=== PATIENT | female | born 1945 | race Caucasian/White ===

== ENCOUNTER 2017-07-26 23:59 | Observation (INO) | payer BC, OTHER ==
[~2017-07-26] VITALS: Ht 149.9 cm; Wt 92.3 kg
[~2017-07-26 23:59] MED LIST: ACTOS15 MG PO; ASPIR 8181 MG PO; ASPIR-LOW81 MG PO; ASPIRIN81 M1 PO; ATORVASTATIN CA80 MG PO; BAYER CHILDREN'81 MG PO; CALCIUM CARBONATE; CARDIZEM CD,CA180 MG PO; CARTIA XT240 MG PO; CHOLECALCIFEROL; CLOPIDOGREL75 MG PO; DILTZAC ER240 MG PO; FERROUS SULFAT325 MG PO; FOLBIC,FOLTX1 DOSE PO; GLUCOVANCE 21 TABLET PO; GLYBURID-METFO1 EAC2 PO; GLYBURIDE-METF1 EACH PO; HYDROCHLOROTH12.5 M2 PO; HYDROCHLOROTH12.5 M3 PO; HYDROCHLOROTHIA25 MG PO; IRON325 MG PO; K-DUR20 MEQ PO; LANTUS 10100 UNITS/ SC; LISINOPRIL10 MG PO; Levothroid,Synthroid PO; METOPROLOL TART75 MG PO; NIFEDIPINE ER30 M1 PO; NITROSTAT0.4 MG SL; NOVOLOG PE100 UNITS/ SC; OSCAL, OYSTER500 MG PO; PRAVACHOL10 MG PO; PROTONIX PO; PROTONIX40 MG PO; SYNTHROID100 MCG PO; SYNTHROID75 MCG PO; VENTOLIN HFA18 GM IH; VITAMIN B-121000 MCG PO; VITAMIN B12-FO1 EACH PO; VITAMIN C250 MG PO; VITAMIN C500 M1 PO; VITAMIN C500 M5 PO; VITAMIN D50000 UNI1 PO; VITAMIN D50000 UNI2 PO; ZESTRIL,PRINIVI20 MG PO; Zestril,Prinivil PO
[2017-07-27 01:35] LABS: HEMATOCRIT 40.5 % (36.0-46.0); HEMOGLOBIN 13.3 G/DL (11.9-15.5); MCH 26.9 PG (29.0-34.0); MCHC 32.8 G/DL (30.0-36.0); MCV 81.8 FL (83-99); PLATELET COUNT 246 K/uL (156-360); RBC DIS.WIDTH-CV 16.3 % (11.8-14.6); RED BLOOD COUNT 4.95 M/uL (3.80-5.20); WHITE BLOOD COUNT 6.6 K/uL (4.1-10.2)
[2017-07-27 01:46] LABS: CHLORIDE 99 mEq/L (99-109); POTASSIUM 3.7 mEq/L (3.7-5.4); SODIUM 138 mEq/L (136-147)
[2017-07-27 01:48] LABS: GLUCOSE 253 mg/dL (70-99)
[2017-07-27 01:52] LABS: CREATININE 0.9 mg/dL (0.6-1.3); GFR ESTIMATE (CALCULATED) > 59 mL/min/
[2017-07-27 01:53] LABS: UREA NITROGEN (BUN) 18 mg/dL (9-23)
[2017-07-27 01:56] LABS: TROP-I INTERPRETATION NEGATIVE; TROPONIN-I < 0.01 ng/mL (0.0-0.30)
[2017-07-27 02:02] LABS: ALBUMIN 3.9 g/dL (3.2-4.8)
[2017-07-27 02:03] LABS: PTT 31.2 SEC (25-37)
[2017-07-27 02:05] LABS: TOTAL PROTEIN 7.4 g/dL (6.4-8.3)
[2017-07-27 02:07] LABS: TOTAL BILIRUBIN 0.6 mg/dL (0.0-1.0)
[2017-07-27 02:08] LABS: ALKALINE PHOSPHATASE 158 IU/L (3-129)
[2017-07-27 02:10] LABS: AST (GOT) 30 IU/L (2-34); DIRECT BILIRUBIN 0.2 mg/dL (0.0-0.3)
[2017-07-27 02:11] LABS: ALT (GPT) 36 IU/L (3-49); LIPASE 32 U/L (1.0-51.0)
[2017-07-27] MEDS ORDERED: TOPROL XL100 MG PO (02:33)
[2017-07-27] MEDS ORDERED: CHILD ASPIRIN81 M1 PO (02:34)
[2017-07-27] MEDS ORDERED: LISINOPRIL-HCT1 EACH PO (02:35)
[2017-07-27] MEDS ORDERED: NORVASC5 MG PO (02:36)
[2017-07-27 07:39] VITALS: BP 158/76
[2017-07-27 09:15] LABS: TROP-I INTERPRETATION NEGATIVE; TROPONIN-I 0.04 ng/mL (0.0-0.30)
[2017-07-27 11:50] VITALS: BP 153/72
[2017-07-27 14:40] LABS: TROP-I INTERPRETATION NEGATIVE; TROPONIN-I 0.06 ng/mL (0.0-0.30)
== END 2017-07-27 14:53 | disposition home or self-care (01) ==
LOC: EME 23:59 → EDOF 07-27 03:05 → ENRESERV 07-27 03:11 → 5WEST 07-27 07:33
PROVIDERS: Hospitalist; Internal Medicine
DX: R07.9 Chest pain, unspecified (principal); I25.10 Atherosclerotic heart disease of native coronary artery without angina pectoris; I25.2 Old myocardial infarction; Z95.5 Presence of coronary angioplasty implant and graft; I25.82 Chronic total occlusion of coronary artery; E03.9 Hypothyroidism, unspecified; I10 Essential (primary) hypertension; K21.9 Gastro-esophageal reflux disease without esophagitis; E11.65 Type 2 diabetes mellitus with hyperglycemia; E78.5 Hyperlipidemia, unspecified; Z87.891 Personal history of nicotine dependence; E66.9 Obesity, unspecified; Z68.41 Body mass index [BMI] 40.0-44.9, adult; K57.90 Diverticulosis of intestine, part unspecified, without perforation or abscess without bleeding; Z90.49 Acquired absence of other specified parts of digestive tract; J44.9 Chronic obstructive pulmonary disease, unspecified; E78.00 Pure hypercholesterolemia, unspecified; Z80.0 Family history of malignant neoplasm of digestive organs; Z79.82 Long term (current) use of aspirin; Z88.1 Allergy status to other antibiotic agents; Z86.19 Personal history of other infectious and parasitic diseases; Z79.4 Long term (current) use of insulin; Z88.5 Allergy status to narcotic agent
CPT/HCPCS: 71046; 80048; 80076; 82948; 83690; 84484; 85027; 85379; 85610; 85730; 93005; 94640; 99202; 99281; 99285; G0378; J2270; J7030

== ENCOUNTER 2017-12-30 03:27 | Emergency (ER) | payer BC, OTHER ==
[~2017-12-30] VITALS: Ht 149.9 cm; Wt 85.7 kg
[~2017-12-30 03:27] MED LIST changes: +CHILD ASPIRIN81 M1 PO; +LISINOPRIL-HCT1 EACH PO; +NORVASC5 MG PO; +TOPROL XL100 MG PO
[2017-12-30] MEDS ORDERED: CLEOCIN300 MG PO (04:06)
[2017-12-30 04:28] VITALS: BP 161/76
== END 2017-12-30 04:48 | disposition home or self-care (01) ==
LOC: EME 03:27
PROC: 2Y41X5Z Packing of Nasal Region using Packing Material (ICD-10-PCS; principal; 2017-12-30)
DX: R04.0 Epistaxis (principal); I10 Essential (primary) hypertension; Z79.82 Long term (current) use of aspirin; E78.5 Hyperlipidemia, unspecified; F32.9 Major depressive disorder, single episode, unspecified; J43.9 Emphysema, unspecified; K21.9 Gastro-esophageal reflux disease without esophagitis; F41.9 Anxiety disorder, unspecified; E03.9 Hypothyroidism, unspecified; Z88.5 Allergy status to narcotic agent; Z88.1 Allergy status to other antibiotic agents; Z87.891 Personal history of nicotine dependence
CPT/HCPCS: 99281; 99284